=== PATIENT | female | born 1940 | race Asian ===

== ENCOUNTER 2016-07-25 13:39 | Emergency (ER) | payer MEDICARE, MEDICAID ==
[~2016-07-25] VITALS: Ht 160 cm; Wt 59.0 kg
[2016-07-25 14:00] VITALS: BP 156/91
--- NOTE | 2016-07-25 14:05 | Emergency Room Report ---
History of Present Illness General Chief Complaint: Multiple Trauma/Fall Source: EMS Present Illness HPI Patient is a 76-year-old female who presented after increased facial pain and laceration after a mechanical trip and fall. Patient denied having any loss of consciousness. Patient was brought in by EMS in a c-collar. The patient was noted to have a laceration to the right side of her face. The patient does not know when her last tetanus vaccine was. Patient had not been vomiting. She denies any severe neck pain. Allergies: Coded Allergies: No Known Allergies (Unverified , 07/25/16) Patient History Pertinent Family History: HTN, DM Reviewed Nursing Documentation: PMH: Agreed, PSxH: Agreed Nursing Documentation-PMH Past Medical History: Deferred Review of Systems All Other Systems: negative except mentioned in HPI Physical Exam Vital Signs Date Time Temp Pulse Resp B/P Pulse Ox O2 Delivery O2 Flow Rate FiO2 07/25/16 13:32 97.9 77 18 151/95 99 Room Air Sp02 EP Interpretation: reviewed, normal General Appearance: normal inspection, well appearing, no apparent distress, alert, GCS 15 Eyes: bilateral eye normal inspection ENT: normal ENT inspection, hearing grossly normal, normal voice Neck: normal inspection, full range of motion, supple, no bony tend Respiratory: normal inspection, lungs clear, normal breath sounds, no respiratory distress, no retraction, no wheezing Cardiovascular #1: regular rate, rhythm, no edema Gastrointestinal: normal inspection, normal bowel sounds, non tender, soft, no guarding, no hernia Genitourinary: no CVA tenderness Musculoskeletal: normal inspection, back normal, normal range of motion Neurologic: normal inspection, alert, oriented x3, responsive, manager environmental affairs III-XII nml as tested, speech normal Psychiatric: normal inspection, judgement/insight normal, mood/affect normal Skin: no rash, laceration - 2 cm to right forehead. Procedures Laceration/Wound Repair Laceration/Wound Repair : Wound Location: face Wound's Depth, Shape: into muscle Wound Length (cm): 2 Wound Explored: clean Irrigated w/ Saline (ccs): 30 Betadine Prep?: Yes Anesthesia: Lidocaine w/ Epi Volume Anesthetic (ccs): 4 Wound Debrided: minimal Wound Repaired With: sutures Suture Size/Type: 6:0 - gut Layer Closure?: Yes Deep Layer Suture Size/Type: 6:0 - vicryl Number Deep Layer Sutures: 4 Sterile Dressing Applied?: Yes Patient Tolerated: Well Complications: None Medical Decision Making Diagnostic Impression: Primary Impression: Facial contusion Additional Impressions: Strain of shoulder, left Facial laceration ER Course Patient presented for fall. Differential diagnosis included was not limited to neck fracture, CVA, close head injury, syncopal episode, basilar ischemia. Because of complexity of patient's case laboratory testing and imaging studies were ordered.The CT the head read by radiologist showed frontal scalp swelling without evident fracture or hematoma. A CT of the cervical spine read by radiologist showed degenerative changes without evident fracture. The patient was noted to have unremarkable laboratory testing. Patient's wound irrigated and sutured.The patient is advised to follow up with primary care doctor in 1- 2 days. Patient is advised to return if any worsening condition or if any changes in status that are concerning. The patient was advised to have the wound rechecked in 3 days. The patient son was advised to have the sutures removed if they were still present after one week Labs Test 07/25/16 14:14 White Blood Count 5.8 K/UL (4.8-10.8) Red Blood Count 4.51 M/UL (4.20-5.40) Hemoglobin 14.2 G/DL (12.0-16.0) Hematocrit 43.3 % (37.0-47.0) Mean Corpuscular Volume 96 FL (80-99) Mean Corpuscular Hemoglobin 31.5 PG (27.0-31.0) Mean Corpuscular Hemoglobin Concent 32.8 G/DL (32.0-36.0) Red Cell Distribution Width 10.8 % (11.6-14.8) Platelet Count 175 K/UL (150-450) Mean Platelet Volume 7.2 FL (6.5-10.1) Neutrophils (%) (Auto) 49.6 % (45.0-75.0) Lymphocytes (%) (Auto) 38.5 % (20.0-45.0) Monocytes (%) (Auto) 8.7 % (1.0-10.0) Eosinophils (%) (Auto) 2.1 % (0.0-3.0) Basophils (%) (Auto) 1.1 % (0.0-2.0) Prothrombin Time 10.5 SEC (9.30-11.50) Prothromb Time International Ratio 1.0 (0.9-1.1) Activated Partial Thromboplast Time 28 SEC (23-33) Sodium Level 140 mEQ/L (135-145) Potassium Level 3.6 mEQ/L (3.4-4.9) Chloride Level 97 mEQ/L (98-107) Carbon Dioxide Level 24 mEQ/L (20-30) Anion Gap 19 (5-15) Blood Urea Nitrogen 13 mg/dL (7-23) Creatinine 0.8 mg/dL (0.5-0.9) Estimat Glomerular Filtration Rate mL/min (>60) Glucose Level 126 mg/dL (74-106) Calcium Level 9.4 mg/dL (8.6-10.2) Total Bilirubin 0.5 mg/dL (0.0-1.2) Aspartate Amino Transf (AST/SGOT) 44 U/L (5-40) Alanine Aminotransferase (ALT/SGPT) 40 U/L (3-33) Alkaline Phosphatase 90 U/L (35-104) Total Protein 7.3 g/dL (6.6-8.7) Albumin 4.2 g/dL (3.5-5.2) Globulin 3.1 g/dL Albumin/Globulin Ratio 1.3 (1.0-2.7) Last Vital Signs Date Time Temp Pulse Resp B/P Pulse Ox O2 Delivery O2 Flow Rate FiO2 07/25/16 13:32 97.9 77 18 151/95 99 Room Air Status: improved Disposition: HOME, SELF-CARE Condition: Stable Scripts Tramadol Hcl* (ULTRAM*) 50 Mg Tablet 50 MG ORAL Q6H Y for For Pain, #30 TAB 0 Refills Prov: Elio Lr 07/25/16 Elio Lr Jul 25, 2016 14:05
[2016-07-25 14:30] VITALS: BP 160/88
[2016-07-25 14:33] LABS: BASOPHILS % (AUTO) 1.1 % (0.0-2.0); EOSINOPHILS % (AUTO) 2.1 % (0.0-3.0); LYMPHOCYTES % (AUTO) 38.5 % (20.0-45.0); MEAN CORPUSCULAR HEMOGLOBIN 31.5 PG (27.0-31.0); MEAN CORPUSCULAR HGB CONC 32.8 G/DL (32.0-36.0); MEAN CORPUSCULAR VOLUME 96 FL (80-99); MEAN PLATELET VOLUME 7.2 FL (6.5-10.1); MONOCYTES % (AUTO) 8.7 % (1.0-10.0); NEUTROPHILS % (AUTO) 49.6 % (45.0-75.0); PLATELET COUNT 175 K/UL (150-450); RED BLOOD COUNT 4.51 M/UL (4.20-5.40); RED CELL DISTRIBUTION WIDTH 10.8 % (11.6-14.8); WHITE BLOOD COUNT 5.8 K/UL (4.8-10.8)
[2016-07-25 14:41] LABS: PROTHROMBIN TIME 10.5 SEC (9.30-11.50)
[2016-07-25 14:50] LABS: ALANINE AMINOTRANSFERASE 40 U/L (3-33); ALBUMIN/GLOBULIN RATIO 1.3 (1.0-2.7); ANION GAP 19 (5-15); ASPARTATE AMINO TRANSFERASE 44 U/L (5-40); CALCIUM 9.4 mg/dL (8.6-10.2); CARBON DIOXIDE 24 mEQ/L (20-30); CHLORIDE 97 mEQ/L (98-107); CREATININE 0.8 mg/dL (0.5-0.9); HEMOLYSIS 41; POTASSIUM 3.6 mEQ/L (3.4-4.9); SODIUM 140 mEQ/L (135-145); TOTAL PROTEIN 7.3 g/dL (6.6-8.7)
[2016-07-25] MEDS ORDERED: Lidocaine 2% 20mg/ml/Epi 0.005mg/ml 20ml vial ONE (16:07)
[2016-07-25] MEDS ORDERED: Lidocaine 2% 20mg/ml/Epi 0.005mg/ml 20ml vial INJ ONE (16:15)
[2016-07-25] MEDS ORDERED: Betadine 10% Oint 15gm TOPIC ONE (16:16)
[2016-07-25] MEDS ORDERED: Betadine 4oz Bottle TOPIC ONE (16:18)
[2016-07-25 16:51] VITALS: BP 142/87
[2016-07-25] MEDS ORDERED: TRAMADOL HCL50 MG ORAL (17:48)
[2016-07-25 17:57] VITALS: BP 121/82
[2016-07-25] MEDS ORDERED: Bacitracin Oint UD TOPIC ONE (18:00)
--- NOTE | 2016-07-26 09:10 | Diagnostic Imaging Report ---
HISTORY: Trauma. TECHNIQUE:\H\ \N\Serial axial images were obtained of the facial bones without the use of intravenous contrast on a multidetector CT. Coronal reformatted images were then obtained. \H\ \N\COMPARISON: None. \H\ \N\FINDINGS: The bony structures are intact without evidence of fracture or bone destruction. Mild mucosal thickening involving the right maxillary sinus is noted. The remaining visualized paranasal sinuses are well pneumatized and aerated without significant mucosal thickening or air-fluid level. Patient is status post bilateral cataract extractions. The globes, intraconal and extraconal spaces, extraocular muscles and optic nerves are normal. The brain included within the field of view are unremarkable. Mild right frontal scalp soft tissue laceration is noted. Dental fillings/hardware is noted with multiple periapical lucencies and dental caries identified. IMPRESSION: 1. Mild right frontal soft tissue laceration. No acute facial bone fracture identified. 2. Mild right maxillary sinus mucosal thickening.
--- NOTE | 2016-07-26 09:16 | Diagnostic Imaging Report ---
HISTORY: Pain, trauma.\H\ \N\COMPARISON: None. \H\ \N\TECHNIQUE: \H\ \N\Serial axial images were obtained through the cervical spine after administration of intravenous contrast on a multidetector CT. Multiplanar reformatted images were then obtained. FINDINGS: Vertebral body and disc space heights are preserved. Straightening of the cervical spine is noted. There is no prevertebral or paraspinal soft tissue swelling or other evidence of acute fracture, subluxation, or jumped facet. Uncovertebral and facet arthropathy in the mid cervical spine particularly at C3-C4 and C4-C5 results in mild spinal canal and neural foraminal narrowing. Visualized common and internal carotid arteries appear patent without significant atherosclerotic disease or aneurysm. The thyroid gland appears enlarged and diffusely heterogeneous. Apparent pleural thickening is noted in the visualized posterior lateral left lung apex. IMPRESSION: 1. No CT evidence of acute cervical spine fracture or subluxation. 2. Mild cervical spondylosis. 3. Enlarged, diffusely heterogeneous thyroid gland. Please correlate with clinical parameters, and thyroid function tests and consider thyroid ultrasound for further evaluation.
--- NOTE | 2016-07-26 09:34 | Diagnostic Imaging Report ---
Clinical history: Pain status post fall. Technique: Frontal, lateral, and oblique views of the left humerus are provided. Comparison: No prior study is available for comparison. Findings: Overall bony mineralization is within normal limits. There is no evidence of acute fracture or dislocation. The soft tissues appear grossly normal. No significant joint effusion is noted. Impression: No evidence of acute fracture or dislocation.
--- NOTE | 2016-07-27 08:43 | Diagnostic Imaging Report ---
CT Brain without Intravenous Contrast INDICATION: Pain status post trauma. COMPARISON: None TECHNIQUE: Serial axial images were obtained from the the skull base through the vertex without intravenous contrast. Coronal reformats were obtained. Dose Estimate: Total DLP 1319 mGycm CTDIvol 70 mGy FINDINGS: The orta white matter differentiation appears normal. There is no evidence of acute intracranial hemorrhage or territorial infarct. The cortical sulci, ventricles and extra-axial CSF spaces are normal in size for patient's age. There is no space occupying lesion, mass effect or midline shift. Mild scattered periventricular and subcortical white matter hypodensities likely reflect changes of chronic microangiopathy. Bilateral basal ganglial mineralization is noted. The visualized paranasal sinuses and mastoid air cells are clear. The osseous structures are unremarkable. Mild right frontal scalp soft tissue injury is noted. IMPRESSION: 1. Mild right frontal scalp soft tissue injury. No acute intracranial hemorrhage, midline shift or mass effect. 2. 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
== END 2016-07-25 18:06 | disposition home or self-care (01) ==
LOC: EDBD 13:39 → EMR 14:00
DX: S01.81XA Laceration without foreign body of other part of head, initial encounter (principal); S46.912A Strain of unspecified muscle, fascia and tendon at shoulder and upper arm level, left arm, initial encounter; S00.83XA Contusion of other part of head, initial encounter; W01.0XXA Fall on same level from slipping, tripping and stumbling without subsequent striking against object, initial encounter; Y92.9 Unspecified place or not applicable; I10 Essential (primary) hypertension; E11.9 Type 2 diabetes mellitus without complications; M47.812 Spondylosis without myelopathy or radiculopathy, cervical region; E04.9 Nontoxic goiter, unspecified; R51 Headache
CPT/HCPCS: 12051; 36415; 70450; 70486; 70491; 73060; 80053; 85025; 85610; 85730; 99284; Q9967; A4246